=== PATIENT | female | born 1955 | race African-American/Black ===

== ENCOUNTER 2022-11-08 08:53 | Outpatient (CLI) | payer MEDICARE, MEDICAID, SELFPAY ==
--- NOTE | ~2022-11-08 | MMUS_ITS ---
EXAMINATION: US GUIDED NEEDLE BIOPSY DATE: 11/08/2022 10:18 CDT INDICATION: Left breast 2:00 and 3:00 masses TECHNIQUE AND FINDINGS: The risks and potential benefits of the procedure were discussed with the patient, and written inform ed consent was obtained. Timeout procedure was performed. After sterile preparation of the left breas t, 1% lidocaine was utilized for local anesthesia. A 14G spring-loaded biopsy gun needle was advanced to the edges of the regions of interest from an in feromedial approach for the 3:00 lesion to avoid a prominent adjacent vessel, and from an inferolater al approach subsequently for the 2:00 lesion. A total of 2 tissue core samples were obtained through the lesion at 3:00 and 4 tissue core samples f rom the 2:00 lesion. The 3:00 lesion appeared to resolve sonographically after initial puncture, suggesting that this was cystic. Nonetheless, 2 biopsy samples were obtained from the area. An Inrad tissue marker clip was placed at each of the 2 biopsy sites. Hemostasis was achieved. A sterile bandage was applied. The patient tolerated procedure well and there was no evidence of immediate complication. The patien t was given verbal instructions prior to departing from the department. A two view mammogram was perf ormed to document tissue marker clip placement. The tissue samples were submitted to surgical patholo gy for histologic analysis. IMPRESSION: Ultrasound guided biopsy of left 2:00 and 3:00 breast masses (possible cyst versus mass at 3:00) with biopsy marker placement. Please refer to pathology report for histologic analysis. Reviewed, dictated and finalized at [facility]. Reviewed, dictated and finalized at [facility]. IMPRESSION: Ultrasound guided biopsy of left 2:00 and 3:00 breast masses (possible cyst shorty sandy mass at 3:00) with biopsy marker placement. Please refer to pathology repor t for histologic analysis. IMPRESSION: Ultrasound guided biopsy of left 2:00 and 3:00 breast masses (possible cyst shorty sandy mass at 3:00) with biopsy marker placement. Please refer to pathology repor t for histologic analysis.
== END 2022-11-08 08:54 | disposition home or self-care (01) ==
PROVIDERS: PCP Internal Medicine Infectious Disease; Visit Provider Surgery
DX: N60.12 Diffuse cystic mastopathy of left breast (principal); N63.21 Unspecified lump in the left breast, upper outer quadrant
CPT/HCPCS: 19083; 19084; 88305; A4648